=== PATIENT | female | born 1975 | race Caucasian/White ===

== ENCOUNTER → 2016-09-26 | Outpatient (CLI) | payer BC ==
[~2016-09-26] VITALS: Ht 162.6 cm; Wt 75.4 kg
[~2016-09-26] MED LIST: BIOF500C2 PO; CALC-51 PO; MULT-506 PO
[2016-09-26 11:33] VITALS: BP 145/89; PULSE 79; Ht 162.6 cm; Wt 75.4 kg
== END | disposition home or self-care (01) ==
LOC: C.NEUR 11:18
PROVIDERS: ATTEND Internal Medicine Pulmonary Disease
DX: R06.83 Snoring (principal); R53.83 Other fatigue; G47.19 Other hypersomnia; R06.81 Apnea, not elsewhere classified; J34.2 Deviated nasal septum; J30.9 Allergic rhinitis, unspecified